=== PATIENT | male | born 1960 | race Caucasian/White ===

== ENCOUNTER → 2016-07-15 | Outpatient (CLI) | payer OTHER ==
--- NOTE | 2016-07-15 17:05 | DX ---
Right Second Finger, Three Views History: Pain of the DIP joint, post trauma on July 12, 2016. Possible foreign body. Findings: No fracture or dislocation is identified. There is soft tissue swelling at the level of th e radial side of the second DIP joint. No radiopaque foreign material or soft tissue gas is identifie d. Impression: No radio opaque foreign body identified.
== END ==
LOC: BRMIMAGING 15:36
PROVIDERS: ATTEND Physician Assistant Medical
DX: M79.644 Pain in right finger(s) (principal)
CPT/HCPCS: 73140-PO